=== PATIENT | female | born 1965 | race Caucasian/White ===

== ENCOUNTER 2020-09-15 00:03 | Emergency (ER) | payer OTHER ==
[~2020-09-15] VITALS: Ht 162.6 cm; Wt 77.1 kg
[~2020-09-15 00:03] MED LIST: DOCU100 PO; OXYACE5T PO
[2020-09-15] MEDS ORDERED: HYDR10 PO (00:54)
[2020-09-15] MEDS ORDERED: PROP10 PO (00:55)
[2020-09-15] MEDS ORDERED: Neurontin 100100 MG PO (00:55)
[2020-09-15] MEDS ORDERED: ATOR20 (00:55)
[2020-09-15] MEDS ORDERED: Norco 10-325 T1 EACH PO (02:28)
[2020-09-15] MEDS ORDERED: ONDA4ODT MM (02:28)
== END 2020-09-15 02:48 | disposition home or self-care (01) ==
LOC: ER 00:03
DX: S52.572A Other intraarticular fracture of lower end of left radius, initial encounter for closed fracture (principal); I10 Essential (primary) hypertension; F17.210 Nicotine dependence, cigarettes, uncomplicated; Z79.899 Other long term (current) drug therapy; W17.89XA Other fall from one level to another, initial encounter
CPT/HCPCS: 29105; 73110; 99283-25; A9270

== ENCOUNTER 2022-04-12 06:38 | Day surgery (SDC) | payer OTHER ==
[~2022-04-12] VITALS: Ht 162.6 cm; Wt 83.2 kg
[~2022-04-12 06:38] MED LIST changes: +ATOR20; +HYDR10 PO; +Neurontin 100100 MG PO; +Norco 10-325 T1 EACH PO; +ONDA4ODT MM; +PROP10 PO
[2022-04-12] MEDS ORDERED: SERT50 PO (07:16)
--- NOTE | 2022-04-12 08:37 | NUR ---
04/12/22 0837 SONYA BATISTA 10MLS OF LIDOCAINE 2% WITH EPI 1:100,000 DRAWN UP ON STERILE FIELD FOR USE DURING CASE.
--- NOTE | 2022-04-12 09:57 | NUR ---
04/12/22 0957 EVELIN VICKERS CURRENTLY PAIN IS 3/10 AFTER 25MCG OF FENTANYL, 800MG IBUPROFEN GIVEN
== END 2022-04-12 10:17 | disposition home or self-care (01) ==
LOC: ORSCSDS 06:38
PROVIDERS: Obstetrics & Gynecology
PROC: 0UBC7ZX Excision of Cervix, Via Natural or Artificial Opening, Diagnostic (ICD-10-PCS; principal; 2022-04-12 08:15)
DX: N85.00 Endometrial hyperplasia, unspecified (principal); R87.610 Atypical squamous cells of undetermined significance on cytologic smear of cervix (ASC-US); R87.810 Cervical high risk human papillomavirus (HPV) DNA test positive; N95.2 Postmenopausal atrophic vaginitis; F41.8 Other specified anxiety disorders; I10 Essential (primary) hypertension; E66.9 Obesity, unspecified; Z68.31 Body mass index [BMI] 31.0-31.9, adult; F17.210 Nicotine dependence, cigarettes, uncomplicated; Z79.899 Other long term (current) drug therapy
CPT/HCPCS: 88305; A9270; J1100; J1885; J2250; J2405; J2704; J3010

== ENCOUNTER 2022-05-24 08:13 | Inpatient (IN) | payer OTHER ==
[~2022-05-24] VITALS: Ht 162.6 cm; Wt 82.9 kg
[~2022-05-24 08:13] MED LIST changes: +Crestor20 MG PO; +HYDPAM50 PO; +SERT50 PO
--- NOTE | 2022-05-24 11:06 | NUR ---
DR. GARCIA REQUESTING TYPE CHECK ON TYPE AND SCREEN FOR LAB SO VERBAL ORDER GIVEN AND LAB CALLED. STRIKE OFF MACHINE OPERATOR MITZI PT'S BLOOD AND SENT TO LAB.
--- NOTE | 2022-05-24 19:33 | NUR ---
SHIFT SUMMARY POD0 HERNIA REPAIR AND NIC LAP HYSTER c BSO, A/O X4, VSS. PT HAD SOME N/V IN PACU AND CONTINUED WHILE OUT HERE ON THE FLOOR, MEDICATED FOR THIS BUT SHE WAS STILL FEELING NAUSEATED AND INTERMITTENT VOMITTING. BOLUS ORDER OBTAINED AND STARTED PER MD ORDER. PT REPORTS FEELING "A LITTLE BETTER". REPORT GIVEN TO DELANEY STYLES.
[2022-05-25 06:01] LABS: BASOPHILS ABSOLUTE AUTO 0.02 K/mm3 (0.00-0.23); BASOPHILS PERCENT AUTO 0 % (0-2); EOSINOPHILS PERCENT AUTO 0 % (0-6); Hematocrit 46.1 % (33.0-51.0); Hemoglobin 15.2 g/dL (11.5-16.0); IMMATURE GRAN ABSOLUTE AUTO 0.06 K/mm3 (0.00-0.10); IMMATURE GRAN PERCENT AUTO 0 % (0-1); LYMPHOCYTES ABSOLUTE AUTO 1.37 K/mm3 (0.84-5.20); LYMPHOCYTES PERCENT AUTO 9 % (21-46); MONOCYTES ABSOLUTE AUTO 1.13 K/mm3 (0.16-1.47); MONOCYTES PERCENT AUTO 7 % (4-13); Mean Corpuscular HGB 28.5 pg (26.0-34.0); Mean Corpuscular Volume 86 fL (80-100); Mean Platelet Volume 10.5 fL (9.1-12.4); NEUTROPHILS ABSOLUTE AUTO 12.68 K/mm3 (1.96-9.15); NEUTROPHILS PERCENT AUTO 83 % (41-73); Platelet Count 279 K/mm3 (150-400); RDW Coefficient Variation 13.8 % (11.7-14.2); RDW Standard Deviation 43.8 fL (35.1-46.3); Red Blood Cell Count 5.34 M/mm3 (3.80-5.20); White Blood Cell Count 15.26 K/mm3 (4.00-11.30)
[2022-05-25 06:15] LABS: Albumin, Blood 4.1 g/dL (3.4-5.0); Albumin/Globulin Ratio 1.1 (0.8-1.8); Bilirubin, Total 0.4 mg/dL (0.1-1.0); Bun/Creatinine Ratio 12.9 (12.0-20.0); Calcium, Blood 9.1 mg/dL (8.5-10.1); Creatinine, Blood 0.85 mg/dL (0.40-1.00); Globulin, Blood 3.7 g/dL (2.2-4.0); Potassium, Blood 3.3 mmol/L (3.5-5.5); Total Protein, Blood 7.8 g/dL (6.4-8.2)
--- NOTE | 2022-05-25 06:54 | NUR ---
WINDLASSER SUMMARY CONSISTENT N/V SINCE SURGERY. MEDICATED WITH PHENERGAN AND ZOFRAN MULTIPLE TIMES THROUGH THE NIGHT. PT WAS ABLE TO SLEEP AN HOUR OR TWO AT A TIME BUT WOULD USUALLY WAKE UP VOMITING OR DRY HEAVING. IV FLUIDS CONTINUED THROUGH THE NIGHT PER DR KAMINSKI IN HOPES OF FLUSHING ANESTHESIA. SPOKE WITH DR KAMINSKI THIS AM REGARDING N/V. DR KAMINSKI SUGGESTED SPEAKING WITH DR ARCE SHE THOUGHT IT MAY BE RELATED TO THE HERNIA REPAIR. SPOKE WITH DR ARCE WHO GAVE ORDER FOR REGLAND AND SCOPALAMINE PATCH AND STATED SHE WOULD SEE PT THIS AM. DR ARCE AND GORDY ALSO NOTIFIED OF PT HTN, STATED MOST LIKELY RELATED TO N/V. ABD SOFT AND ONLY SLIGHTLY TENDER TO TOUCH, SKIN WARM AND FACE FLUSHED AT TIMES BUT TEMP 99. OTHER VSS, WILL CONTINUE TO MONITOR AND GIVE REPORT TO DAY SHIFT RN.
--- NOTE | 2022-05-25 11:55 | NUR ---
1010 PT AWAKE, SITTING ON EDGE OF BED. PT REPORTS FEELS MUCH BETTER THAN DURING THE NIGHT. PT REPORTS ONLY SLIGHT NAUSEA. PT DECLINES FOOD OR FLUID AT THIS TIME BUT WILL FILL OUT LUNCH MENU AND TRY EATING WHEN LUNCH ARRIVES
--- NOTE | 2022-05-25 13:53 | NUR ---
1335 pt reports no lessening of nausea AND REPORTS SHE WAS DRY HEAVIING, ZOFRAN AND ATIVAN GIVEN
--- NOTE | 2022-05-25 13:53 | NUR ---
1255 reports nausea after taking a bite of soup, medicated with phenergan
--- NOTE | 2022-05-25 13:54 | NUR ---
7810 DR SKAGGS PHONED IN TO CHECK ON PTIENT. UPDATED DR SKAGGS REGARDING PATIENTS NAUSEA. PT LYIING IN BED WITH EYES CLOSED AT THIS TIME
--- NOTE | 2022-05-25 15:36 | NUR ---
1500 PT RETCHING, UP TO SHOWER. PER PATIENT SHOWER WATER IS LUKEWARM AND SHE IS GETTING COLD IN SHOWER. UNABLE TO GET WATER WARMER THAN LUKEWARM. PT RETURNED TO BED WITH WARM BLANKETS APPLIED. ATIVAN 0.5 MG IV GIVEN
--- NOTE | 2022-05-25 16:48 | NUR ---
dr shaffer in to see patient
--- NOTE | 2022-05-25 17:20 | NUR ---
PT WITH INTERMITTENT NAUSEA AND RETCHING. PT HAS TAKEN ONLY A COUPLE BITES OF SOUP THIS SHIFT WHICH RESULTED IN NAUSEA. PT HAS PASSED FLATUS X1 AND IS BELCHING OCCASSIONALLY. HYPOACTIVE BOWEL SOUNDS, PT REPORTS SHE DOES NOT FEEL ABDOMEN IS DISTENDED. PT HAS DECLINED NEED FOR PAIN MEDS REPORTS PAIN IS 2/10. ABD LAP SITES DRY AND INTACT X4
[2022-05-26 03:59] LABS: BASOPHILS ABSOLUTE AUTO 0.02 K/mm3 (0.00-0.23); BASOPHILS PERCENT AUTO 0 % (0-2); EOSINOPHILS PERCENT AUTO 0 % (0-6); Hematocrit 40.9 % (33.0-51.0); Hemoglobin 13.4 g/dL (11.5-16.0); IMMATURE GRAN ABSOLUTE AUTO 0.05 K/mm3 (0.00-0.10); IMMATURE GRAN PERCENT AUTO 0 % (0-1); LYMPHOCYTES ABSOLUTE AUTO 3.19 K/mm3 (0.84-5.20); LYMPHOCYTES PERCENT AUTO 20 % (21-46); MONOCYTES ABSOLUTE AUTO 1.53 K/mm3 (0.16-1.47); MONOCYTES PERCENT AUTO 10 % (4-13); Mean Corpuscular HGB 28.4 pg (26.0-34.0); Mean Corpuscular HGB Conc 32.8 g/dL (31.5-36.5); Mean Corpuscular Volume 87 fL (80-100); Mean Platelet Volume 10.8 fL (9.1-12.4); NEUTROPHILS PERCENT AUTO 70 % (41-73); Platelet Count 258 K/mm3 (150-400); RDW Standard Deviation 44.9 fL (35.1-46.3); Red Blood Cell Count 4.72 M/mm3 (3.80-5.20); White Blood Cell Count 16.19 K/mm3 (4.00-11.30)
[2022-05-26 04:23] LABS: Albumin, Blood 3.6 g/dL (3.4-5.0); Anion Gap 7 mmol/L (6-16); Blood Urea Nitrogen 12 mg/dL (8-24); Bun/Creatinine Ratio 17.3 (12.0-20.0); CO2, Blood 27 mmol/L (21-32); Calcium, Blood 8.5 mg/dL (8.5-10.1); Chloride, Blood 106 mmol/L (98-108); Glomerular Filtration Rate 100 (60-); Glucose, Blood 123 mg/dL (70-99); Magnesium, Blood 1.8 mg/dL (1.6-2.4); Phosphorus, Blood 2.4 mg/dL (2.5-4.9); Potassium, Blood 2.9 mmol/L (3.5-5.5); Sodium, Blood 140 mmol/L (136-145)
--- NOTE | 2022-05-26 07:46 | NUR ---
SHIFT SUMMARY PT A&OX4, AND COOPERATIVE WITH CARE. MEDICATED FOR PAIN ONCE WITH TORADOL. PT REMAINS NAUSEOUS WITH OCCASIONAL VOMITING, MEDICATING PER EMAR. INDEPENDENT TO BATHROOM. FLUIDS INFUSING. 4 LAP SITES, C/D/I. CALLS APPROPRIATELY, CALL LIGHT WITHIN REACH.
--- NOTE | 2022-05-26 08:21 | NUR ---
AWAKE, CONT. TO C/O NAUSEA, PT VOMITTED 50CC OF GREEN EMESIS DURING ASSESSMENT, PO MEDS HELD AT THIS TIME, PT STATES SHE HASN'T BEEN ABLE TO KEEP FOOD OR FLUIDS DOWN, AMBULATING TO THE BATHROOM INDEPENDENTLY, ABD SOFT, DENIES ANY NEED FOR PAIN MEDS AT THIS TIME, CONT. TO MONITOR FOR ANY CHANGES.
--- NOTE | 2022-05-26 12:57 | NUR ---
HOSPITALIST SERVICE CONSULTED FOR PERSISTENT HTN AND N/V, SEE ORDERS, TROPONIN CRITICALLY ELEVATED, DR. RODRIGUEZ NOTIFIED, ECHO NOTED ORDERED CONFIRMED WITH DR. GE THAT IT IS NOT NEEDED TO BE DONE STAT, PT CONT. TO HAVE N/V, DENIES ANY CHEST PAIN, SOB OR INCREASED ABD PAIN, DENIES ANY NEED FOR PAIN MEDS AT THIS TIME, CONT. TO MONITOR FOR ANY CHANGES.
[2022-05-26 13:16] LABS: Anti-Xa UFH, PHA Monitoring <0.10 IU/mL; International Normalized Ratio 1.02; Prothrombin Time Results 10.7 Sec (9.7-11.5)
--- NOTE | 2022-05-26 16:46 | NUR ---
PT TRANSFERRED TO PCU, REPORT GIVEN TO STEPHANI MURRAY.
[2022-05-26 18:32] LABS: Bun/Creatinine Ratio 14.6 (12.0-20.0); Calcium, Blood 8.9 mg/dL (8.5-10.1); Creatinine, Blood 0.69 mg/dL (0.40-1.00)
--- NOTE | 2022-05-26 21:30 | NUR ---
CALL TO MD FARZANEH FELICIANO PERSISTENT NAUSEA. NO IMPROVEMENT WITH MOST RECENT DOSE OF ZOFRAN. SCHEDULED REGLAN TO START AT MIDNIGHT TONIGHT. REQUEST FOR ADDITIONAL ANTIEMETIC / INTERVENTION. ORDER RECEIVED FOR GI COCKTAIL X 1 NOW.
--- NOTE | 2022-05-26 22:58 | NUR ---
PT REPORTS RELIEF FROM COMBINATION OF GI COCKTAIL AND IV ATIVAN. SHE IS RESTING COMFORTABLY AT THIS TIME.
[2022-05-27 03:17] LABS: BASOPHILS ABSOLUTE AUTO 0.02 K/mm3 (0.00-0.23); BASOPHILS PERCENT AUTO 0 % (0-2); EOSINOPHILS PERCENT AUTO 0 % (0-6); Hematocrit 38.8 % (33.0-51.0); Hemoglobin 13.1 g/dL (11.5-16.0); IMMATURE GRAN ABSOLUTE AUTO 0.07 K/mm3 (0.00-0.10); IMMATURE GRAN PERCENT AUTO 0 % (0-1); LYMPHOCYTES ABSOLUTE AUTO 1.71 K/mm3 (0.84-5.20); LYMPHOCYTES PERCENT AUTO 9 % (21-46); MONOCYTES ABSOLUTE AUTO 1.75 K/mm3 (0.16-1.47); MONOCYTES PERCENT AUTO 10 % (4-13); Mean Corpuscular HGB 29.1 pg (26.0-34.0); Mean Corpuscular HGB Conc 33.8 g/dL (31.5-36.5); Mean Corpuscular Volume 86 fL (80-100); Mean Platelet Volume 10.9 fL (9.1-12.4); NEUTROPHILS ABSOLUTE AUTO 14.56 K/mm3 (1.96-9.15); NEUTROPHILS PERCENT AUTO 80 % (41-73); Platelet Count 226 K/mm3 (150-400); RDW Coefficient Variation 13.9 % (11.7-14.2); RDW Standard Deviation 43.8 fL (35.1-46.3); White Blood Cell Count 18.11 K/mm3 (4.00-11.30)
[2022-05-27 03:39] LABS: Bun/Creatinine Ratio 18.2 (12.0-20.0); Calcium, Blood 8.8 mg/dL (8.5-10.1); Creatinine, Blood 0.66 mg/dL (0.40-1.00); Potassium, Blood 3.3 mmol/L (3.5-5.5)
--- NOTE | 2022-05-27 05:33 | NUR ---
INCIDENTS OF NAUSEA AND VOMITING HAVE LESSENED SOME OVERNIGHT, BUT STILL PERSIST. PATIENT RESPONDED WELL TO PRN ATIVAN AND GI COCKTAILx 1 DOSE. HYPERTENSION PERSISTS WITH SLIGHT IMPROVEMENT WITH ADMINISTRATION OF PRN HYDRALAZINE AND PRN LABETALOL. MS. CAMPBELL REPORTED TENDERNESS TO ABDOMEN AT INCISION SITES, RATING THE PAIN 2-3/10 AND DENYING NEED FOR ANY ANALGESICS.
--- NOTE | 2022-05-27 10:08 | NUR ---
ASSUMPTION OF CARE: NEURO: PATIENT IS ALERT AND ORIENTED. COOPERATIVE WITH CARE, USES CALL LIGHT APPROPRIATELY. DENIES N/T AT THIS TIME. ABLE TO MAKE NEEDS KNOWN. CARDIAC: PATIENT DENIES CHEST PAIN PRESSURE OR SOB. BLOOD PRESSURE STILL ELEVATED STILL SLGIHTLY IMPROVED FROM LAST SHIFT. PULM: SPO2>95% ON RA. NO CONCERNS FROM THIS RN. GI: PATIENT HAS BEEN VERY NAUSEATED, EVEN WITH PRN MEDICATIONS. IMPROVING SLOWLY. STILL NO BM ABD INCISIONS CDI : ABLE TO VOID NO CONCERNS AT THIS TIME. CONCERNS: NO CONCERNS FROM THIS RN, AWAITING ECHO AT THIS TIME. WILL CONTINUE TO MONITOR UNTIL SHIFT CHANGE.
--- NOTE | 2022-05-27 16:52 | NUR ---
END OF SHIFT: ONLY CHNAGE FROM ASSUMPTION OF CARE ARE PATIENT ECHO RESULTED IN PATIENT BEING SIGNED OFF BY CARDIOLOGY. HOSPITLIST WILL MANAGE. LISINOPRIL HAS BEEN ADDED BACK, TO REGULATE HTN. PATIENT HAS HAD 2 INCIDENENCES OF INCREASED BP. HYDRALAZINE FIXED THE FIRST. PATIENT TOLERATED PO POTASSIUM. WILL ATTEMPT DINNER. QTC MONITORED BY EKG WITH SOME SLIGHT INCREASE. PLEASE SEE IMAGES. PATIENT STILL DENIES CHEST PAIN IMPROVED N/V VERY SLIGHTLY. NO FURTHER CONCERNS AND OR CHANGES FROM ASSUMPTION OF CARE.
[2022-05-28 05:11] LABS: BASOPHILS ABSOLUTE AUTO 0.04 K/mm3 (0.00-0.23); BASOPHILS PERCENT AUTO 0 % (0-2); EOSINOPHILS ABSOLUTE AUTO 0.02 K/mm3 (0.00-0.68); EOSINOPHILS PERCENT AUTO 0 % (0-6); Hematocrit 42.2 % (33.0-51.0); IMMATURE GRAN ABSOLUTE AUTO 0.06 K/mm3 (0.00-0.10); IMMATURE GRAN PERCENT AUTO 0 % (0-1); LYMPHOCYTES ABSOLUTE AUTO 2.11 K/mm3 (0.84-5.20); LYMPHOCYTES PERCENT AUTO 14 % (21-46); MONOCYTES ABSOLUTE AUTO 1.52 K/mm3 (0.16-1.47); MONOCYTES PERCENT AUTO 10 % (4-13); Mean Corpuscular HGB 28.6 pg (26.0-34.0); Mean Corpuscular HGB Conc 33.2 g/dL (31.5-36.5); Mean Corpuscular Volume 86 fL (80-100); Mean Platelet Volume 10.9 fL (9.1-12.4); NEUTROPHILS ABSOLUTE AUTO 10.89 K/mm3 (1.96-9.15); NEUTROPHILS PERCENT AUTO 74 % (41-73); Platelet Count 241 K/mm3 (150-400); RDW Coefficient Variation 13.6 % (11.7-14.2); RDW Standard Deviation 43.2 fL (35.1-46.3); Red Blood Cell Count 4.89 M/mm3 (3.80-5.20); White Blood Cell Count 14.64 K/mm3 (4.00-11.30)
--- NOTE | 2022-05-28 05:28 | NUR ---
SHIFT SUMMARY A/OX4, SBA TO BSC. POD #4 LAP HYSTER AND HERNIA REPAIR. ABD LAP SITES X4. DENIES PAIN. C/O N/V, MEDICATED PER EMAR. SPO2 >92% ON RA. TELE SR IN THE 70S, DENIES CHEST PAIN/PRESSURE. HYPERTENSIVE >170 SYSTOLIC, IV HYDRALAZINE GIVEN X2. NO ACUTE CHANGES AT THIS TIME. BED IN LOWEST POSITION WITH CALL LIGHT IN REACH. WILL CONTINUE TO MONITOR AND REPORT TO ONCOMING RN.
[2022-05-28 05:46] LABS: Bun/Creatinine Ratio 21.3 (12.0-20.0); Creatinine, Blood 0.85 mg/dL (0.40-1.00); Potassium, Blood 3.1 mmol/L (3.5-5.5)
--- NOTE | 2022-05-28 11:39 | NUR ---
PT ARRIVED TO UNIT AT APROX 1100 FROM PACU. PT AMBULATED SBA TO BATHROOM THEN BACK TO BED. C/O ABD CRAMPING, KPAD SET UP AND APPLIED TO ABD. WRITTEN ORDERS ENTERED INTO EMAR AND WILL MEDICATE WITH TORADOL ONCE ORDERES VERIFIED BY PHARMACY. TOLERATED CLEAR LIQUIDS WITH NO N/V, WILL ADVANCE TOLERATED FOR LUNCH. PT ABLE TO VOID VERY SMALL AMT ONCE ARRIVED TO UNIT-FLUIDS RUNNING AT 100ML/HR UNTIL FIRST GOOD VOID THEN WILL SALINE LOCK. MOTHER AT BEDSIDE. PT AND FAMILY EDUCATED ON POST-OP VITALS AND DC CRITERIA-BOTH VERBALIZE UNDERSTANDING.
[2022-05-28] MEDS ORDERED: METO10 PO (12:55)
[2022-05-28] MEDS ORDERED: Zestril40 MG PO (14:56)
[2022-05-28] MEDS ORDERED: Acetaminophen325 M1 PO (14:56)
[2022-05-28] MEDS ORDERED: Prednisone10 MG PO (14:57)
--- NOTE | 2022-05-28 15:18 | NUR ---
DISCHARGE PATIENT CLEARE TO DISCHARGE BY ADMISSIONS SUPERVISOR, SURGERY, AND INTERNAL MEDICINE TEAM. PATIENT IS TOLERATING PO INTAKE, NAUSEA X1 THIS AM, NONE REPORTED SINC. NO EMESIS. DENIES PAIN. AMBULATIING WELL W/O ASSISTANCE WITHIN ROOM. PATIENT REPORTS FEELING COMFORTABLE WITH DISCHARGE. DISCUSSED DISCHARGE INSTRUCTIONS WITH PATIENT. PATIENT IS AWAITING RIDE, PLAN TO ESCORT OUT VIA W/C.
--- NOTE | 2022-05-28 16:09 | NUR ---
ESCORTED OUT VIA W/C
== END 2022-05-28 16:20 | disposition home or self-care (01) | DRG 739 ==
LOC: ORSCMMR 08:13 → ORD 09:45 → SURS 15:15 → ORSCMMR 05-26 09:11 → SURS 05-26 09:13 → PCU 05-26 09:13
PROVIDERS: Family Medicine; Family Medicine Adult Medicine; Hospitalist; Obstetrics & Gynecology; Surgery
PROC: 0UB74ZZ Excision of Bilateral Fallopian Tubes, Percutaneous Endoscopic Approach (ICD-10-PCS; 2022-05-24)
PROC: 0WQF4ZZ Repair Abdominal Wall, Percutaneous Endoscopic Approach (ICD-10-PCS; 2022-05-24)
PROC: 8E0W4CZ Robotic Assisted Procedure of Trunk Region, Percutaneous Endoscopic Approach (ICD-10-PCS; 2022-05-24)
PROC: 0TJB8ZZ Inspection of Bladder, Via Natural or Artificial Opening Endoscopic (ICD-10-PCS; 2022-05-24)
PROC: 0UT94ZZ Resection of Uterus, Percutaneous Endoscopic Approach (ICD-10-PCS; principal; 2022-05-24 09:45)
PROC: 0UB24ZZ Excision of Bilateral Ovaries, Percutaneous Endoscopic Approach (ICD-10-PCS; 2022-05-24 09:45)
DX: D06.9 Carcinoma in situ of cervix, unspecified (principal); I21.A1 Myocardial infarction type 2; K42.0 Umbilical hernia with obstruction, without gangrene; I16.1 Hypertensive emergency; D25.9 Leiomyoma of uterus, unspecified; N70.11 Chronic salpingitis; N83.202 Unspecified ovarian cyst, left side; I16.0 Hypertensive urgency; E87.6 Hypokalemia; E83.39 Other disorders of phosphorus metabolism; R11.2 Nausea with vomiting, unspecified; R94.31 Abnormal electrocardiogram [ECG] [EKG]; I10 Essential (primary) hypertension; E66.9 Obesity, unspecified; F17.210 Nicotine dependence, cigarettes, uncomplicated; F32.A Depression, unspecified; E78.5 Hyperlipidemia, unspecified; I45.10 Unspecified right bundle-branch block; I44.4 Left anterior fascicular block; F41.9 Anxiety disorder, unspecified; F12.10 Cannabis abuse, uncomplicated; Z96.641 Presence of right artificial hip joint; Z98.51 Tubal ligation status; Z86.79 Personal history of other diseases of the circulatory system; Z98.890 Other specified postprocedural states; Z79.899 Other long term (current) drug therapy; Z68.31 Body mass index [BMI] 31.0-31.9, adult
CPT/HCPCS: 36415; 71260; 74177; 80048; 80053; 80069; 83735; 84484; 85025; 85520; 85610; 85730; 88307; 93005; 93010; 93306; A9270; C9113; J0360; J1100; J1644; J1650; J1885; J2060; J2250; J2270; J2405; J2550; J2704; J2765; J2920; J3010; J3411; J3475; J3480; J7030; J7040; J7050; J7060; J7120; Q0167; Q9967

== ENCOUNTER 2023-01-06 12:03 | Emergency (ER) | payer OTHER ==
[~2023-01-06] VITALS: Ht 162.6 cm; Wt 77.1 kg
[~2023-01-06 12:03] MED LIST changes: +Acetaminophen325 M1 PO; +METO10 PO; +Prednisone10 MG PO; +Zestril40 MG PO
[2023-01-06 12:18] VITALS: BP 113/81
== END 2023-01-06 15:12 | disposition home or self-care (01) ==
LOC: ER 12:03
DX: S93.402A Sprain of unspecified ligament of left ankle, initial encounter (principal); F17.210 Nicotine dependence, cigarettes, uncomplicated; I10 Essential (primary) hypertension; Z79.899 Other long term (current) drug therapy; W07.XXXA Fall from chair, initial encounter; Y92.007 Garden or yard of unspecified non-institutional (private) residence as the place of occurrence of the external cause
CPT/HCPCS: 73610; 96372; 99283-25; J1885

== ENCOUNTER 2023-03-28 11:51 | Emergency (ER) | payer OTHER ==
[~2023-03-28] VITALS: Ht 162.6 cm; Wt 72.6 kg
[2023-03-28] MEDS ORDERED: CRUTCH4 XX (16:14)
[2023-03-28 16:25] VITALS: BP 135/104
== END 2023-03-28 16:27 | disposition home or self-care (01) ==
LOC: ER 11:51
DX: S93.401A Sprain of unspecified ligament of right ankle, initial encounter (principal); I10 Essential (primary) hypertension; I25.2 Old myocardial infarction; F17.210 Nicotine dependence, cigarettes, uncomplicated; Z79.899 Other long term (current) drug therapy; X50.9XXA Other and unspecified overexertion or strenuous movements or postures, initial encounter
CPT/HCPCS: 73610; 99283-25

== ENCOUNTER 2023-07-30 12:52 | Emergency (ER) | payer OTHER ==
[~2023-07-30] VITALS: Ht 162.6 cm; Wt 80.7 kg
[~2023-07-30 12:52] MED LIST changes: +CRUTCH4 XX
[2023-07-30 13:50] VITALS: BP 134/97
[2023-07-31] MEDS ORDERED: Hydroxyzine HCl50 MG PO (10:13)
[2023-07-31] MEDS ORDERED: GABAPENTIN600 MG PO (10:13)
[2023-07-31] MEDS ORDERED: PANT40 PO (16:43)
== END 2023-07-30 15:18 | disposition home or self-care (01) ==
LOC: ER 12:52
DX: R13.10 Dysphagia, unspecified (principal); I10 Essential (primary) hypertension; I25.2 Old myocardial infarction; F17.210 Nicotine dependence, cigarettes, uncomplicated; Z96.642 Presence of left artificial hip joint
CPT/HCPCS: 99283

== ENCOUNTER 2023-07-31 08:24 | Observation (INO) | payer OTHER ==
[~2023-07-31] VITALS: Ht 162.6 cm; Wt 80.7 kg
[2023-07-31] VITALS (21 sets, daily range): BP systolic 95–193; BP diastolic 54–111
[2023-07-31] MEDS ORDERED: GABAPENTIN600 MG PO (10:13)
[2023-07-31] MEDS ORDERED: Hydroxyzine HCl50 MG PO (10:13)
[2023-07-31 10:49] LABS: BASOPHILS ABSOLUTE AUTO 0.06 K/mm3 (0.00-0.23); BASOPHILS PERCENT AUTO 1 % (0-2); EOSINOPHILS ABSOLUTE AUTO 0.14 K/mm3 (0.00-0.68); EOSINOPHILS PERCENT AUTO 2 % (0-6); Hematocrit 44.8 % (33.0-51.0); IMMATURE GRAN ABSOLUTE AUTO 0.02 K/mm3 (0.00-0.10); IMMATURE GRAN PERCENT AUTO 0 % (0-1); LYMPHOCYTES ABSOLUTE AUTO 2.17 K/mm3 (0.84-5.20); LYMPHOCYTES PERCENT AUTO 25 % (21-46); MONOCYTES ABSOLUTE AUTO 0.73 K/mm3 (0.16-1.47); MONOCYTES PERCENT AUTO 9 % (4-13); Mean Corpuscular HGB 28.4 pg (26.0-34.0); Mean Corpuscular HGB Conc 33.5 g/dL (31.5-36.5); Mean Corpuscular Volume 85 fL (80-100); Mean Platelet Volume 9.6 fL (9.1-12.4); NEUTROPHILS ABSOLUTE AUTO 5.47 K/mm3 (1.96-9.15); NEUTROPHILS PERCENT AUTO 64 % (41-73); Platelet Count 276 K/mm3 (150-400); RDW Coefficient Variation 13.3 % (11.7-14.2); RDW Standard Deviation 41.8 fL (35.1-46.3); Red Blood Cell Count 5.28 M/mm3 (3.80-5.20); White Blood Cell Count 8.59 K/mm3 (4.00-11.30)
[2023-07-31] MEDS ORDERED: Lactated Ringer's 1,000 ML IV SCH (10:50)
[2023-07-31] MEDS ORDERED: Ondansetron HCl 2 MG / ML 2ML Vial IV PRN (10:50)
[2023-07-31 11:11] LABS: Bun/Creatinine Ratio 18.9 (12.0-20.0); Calcium, Blood 9.4 mg/dL (8.5-10.1); Creatinine, Blood 0.95 mg/dL (0.40-1.00); Potassium, Blood 4.1 mmol/L (3.5-5.5)
[2023-07-31] MEDS ORDERED: propofoL 40 ML IV ONE (13:21)
--- NOTE | 2023-07-31 14:14 | NUR ---
History, Chart, Medications and Allergies reviewed before start of procedure. Patient up to Ambulate independently. Gait steady. Pre-Op teaching done. Pt verbalizes understanding. Patient confirms NPO status and agrees with scheduled surgery. Lungs clear T/O to Auscultation with occasional wheeze on left upper lobe.
[2023-07-31] MEDS ORDERED: Midazolam HCl 1MG / ML 2ML Vial ONE (14:29)
--- NOTE | 2023-07-31 14:58 | NUR ---
07/31/23 1458 Samantha Rosas HISTORY, CHART, MEDICATIONS AND ALLERGIES REVIEWED BEFORE START OF PROCEDURE. PATIENT CONFIRMS NPO STATUS AND AGREES WITH SCHEDULED PROCEDURE. 3-LEAD EKG REVIEWED WITH PHYSICIAN PRIOR TO START OF PROCEDURE. MONITOR INTACT WITH CONTINUOUS PULSE OXIMETRY,CAPNOGRAPHY, 3-LEAD EKG, INTERMITTENT BP. SUPPLEMENTAL O2 TO BE TITRATED THROUGHOUT PROCEDURE TO MAINTAIN O2 SATURATION ABOVE 90%. PATIENT DETERMINED TO BE ASA APPROPRIATE FOR PROPOFOL SEDATION PRIOR TO START OF PROCEDURE BY . MALLAMPATI CLASS 2 AIRWAY: COMPLETE VISUALIZATION OF THE UVULA.
--- NOTE | 2023-07-31 15:58 | NUR ---
PT ARRIVED TO UNIT FROM PACU. ABLE TO STAND AND TRANSFER TO BED FROM [facility]. REPORTS FEELING A LITTLE GROGGY FROM ANESTHESIA. DENIES PAIN. SOME DISCOMFORT IN THROAT. NO SOB. PT IS AT LOCAL [facility], SHE IS HOPING TO DISCHARGE TODAY AND BE ABLE TO TAKE CARE OF HIM.
[2023-07-31] MEDS ORDERED: Pantoprazole Sodium 40 MG Tab PO SCH (16:30)
[2023-07-31] MEDS ORDERED: PANT40 PO (16:43)
--- NOTE | 2023-07-31 16:50 | NUR ---
MEDICATIONS SENT TO [facility] PER PT REQUEST.
--- NOTE | 2023-07-31 17:45 | NUR ---
DISCHARGE PT LEFT VIA WHEELCHAIR. REPORTS BEING EXCITED TO SIT IN THE SUN. ABLE TO TOLERATE EATING AND DRINKING. REPORTED IT FELT MUCH BETTER FOR HER. PRESCRIPTIONS SENT TO [facility] AT PT REQUEST. ALL INSTRUCTIONS GONE OVER WITH PATIENT. ALL QUESTIONS ANSWERED.
== END 2023-07-31 17:28 | disposition home or self-care (01) ==
LOC: ER 08:24 → MEDS 10:47
PROVIDERS: Emergency Medicine; Internal Medicine Gastroenterology; ADMIT Internal Medicine
PROC: 0DB78ZX Excision of Stomach, Pylorus, Via Natural or Artificial Opening Endoscopic, Diagnostic (ICD-10-PCS; principal; 2023-07-31 09:30)
PROC: 0D748ZZ Dilation of Esophagogastric Junction, Via Natural or Artificial Opening Endoscopic (ICD-10-PCS; principal; 2023-07-31 09:30)
DX: K21.00 Gastro-esophageal reflux disease with esophagitis, without bleeding (principal); K29.70 Gastritis, unspecified, without bleeding; K44.9 Diaphragmatic hernia without obstruction or gangrene; K22.2 Esophageal obstruction; I10 Essential (primary) hypertension; I25.2 Old myocardial infarction; F17.210 Nicotine dependence, cigarettes, uncomplicated; I25.10 Atherosclerotic heart disease of native coronary artery without angina pectoris; E11.9 Type 2 diabetes mellitus without complications; L83 Acanthosis nigricans
CPT/HCPCS: 80048; 85025; 99284; A9270; C1726; G0378; J2250; J2704; J7120

== ENCOUNTER 2023-10-10 11:47 | Day surgery (SDC) | payer OTHER ==
[~2023-10-10] VITALS: Ht 162.6 cm; Wt 79.7 kg
[~2023-10-10 11:47] MED LIST changes: +GABAPENTIN600 MG PO; +Hydroxyzine HCl50 MG PO; +Lactated Ringer's 1,000 ML IV ONE; +PANT40 PO; +propofoL 50 ML IV ONE
[2023-10-10] MEDS ORDERED: UBID10 (11:53)
[2023-10-10] MEDS ORDERED: KRILL OIL500 MG (11:53)
[2023-10-10] MEDS ORDERED: VITAMIN K240 MCG (11:53)
[2023-10-10] MEDS ORDERED: VITAMIN D310 MC4 (11:53)
[2023-10-10] MEDS ORDERED: B12-FOLIC ACID1 EACH (11:55)
[2023-10-10] MEDS ORDERED: Lactated Ringer's 1,000 ML IV ONE (12:15)
[2023-10-10 13:10] VITALS: BP 126/87
== END 2023-10-10 13:16 | disposition home or self-care (01) ==
LOC: ORSCSDS 11:47
PROVIDERS: Specialist
PROC: 0DJ08ZZ Inspection of Upper Intestinal Tract, Via Natural or Artificial Opening Endoscopic (ICD-10-PCS; principal; 2023-10-10 13:00)
DX: K22.2 Esophageal obstruction (principal); Z87.19 Personal history of other diseases of the digestive system; K44.9 Diaphragmatic hernia without obstruction or gangrene; F32.A Depression, unspecified; F41.9 Anxiety disorder, unspecified; Z79.899 Other long term (current) drug therapy
CPT/HCPCS: C1726; J2704; J7120